=== PATIENT | female | born 1955 | race Caucasian/White ===

== ENCOUNTER 2018-07-08 11:32 | Outpatient (CLI) | payer BC ==
[2018-07-08 17:35] LABS: BASOPHILS # (AUTO) 0.1 10^3/uL (0.0-0.1); BASOPHILS % (AUTO) 0.5 %; EOSINOPHILS # (AUTO) 0.2 10^3/uL (0.0-0.7); EOSINOPHILS % (AUTO) 1.5 %; HGB - HEMOGLOBIN 12.5 g/dL (12.0-16.0); LYMPHOCYTES % (AUTO) 19.3 %; MEAN CORPUSCULAR HEMOGLOBIN 28.9 pg (27.0-31.0); MEAN CORPUSCULAR HGB CONC 32.7 g/dL (32.0-36.0); MEAN CORPUSCULAR VOLUME 88.6 fL (81.0-99.0); MEAN PLATELET VOLUME 9.1 fL (7.9-10.8); MONOCYTES # (AUTO) 0.8 10^3/uL (0.0-1.0); MONOCYTES % (AUTO) 7.8 %; NEUTROPHILS # (AUTO) 7.4 10^3/uL (1.5-6.6); NEUTROPHILS % (AUTO) 70.9 %; PLT - PLATELET COUNT 223 10^3/uL (130-450); RED BLOOD COUNT 4.33 10^6/uL (4.20-5.40); WHITE BLOOD COUNT 10.4 x10^3/uL (4.8-10.8)
[2018-07-08 17:44] LABS: HB2 TOTAL 13.7 g/dL; HEMOGLOBIN A1C 0.48 g/dL; HEMOGLOBIN A1C % 5.4 % (4.6-6.2)
[2018-07-08 18:51] LABS: ALBUMIN 4.5 g/dL (3.2-5.5); ALBUMIN/GLOBULIN RATIO 1.4 (1.0-2.2); ALKALINE PHOSPHATASE 62 IU/L (42-121); ALT ALANINE AMINOTRANSFERASE 12 IU/L (10-60); AST ASPARTATE AMINOTRANSFERASE 15 IU/L (10-42); BILIRUBIN,TOTAL 0.7 mg/dL (0.2-1.0); BUN - BLOOD UREA NITROGEN 20 mg/dL (6-20); CALCIUM 9.6 mg/dL (8.5-10.3); CARBON DIOXIDE - CO2 27 mmol/L (21-32); CHLORIDE 99 mmol/L (101-111); CHOL/HDL RATIO 5.3 (<4.4); CHOLESTEROL 330 mg/dL; CREATININE 0.9 mg/dL (0.4-1.0); GFR - MDRD 64 (>89); GLUCOSE 86 mg/dL (70-100); HDL CHOLESTEROL 62 mg/dL; LDL CHOLESTEROL,CALCULATED 241 mg/dL; LDL/HDL RATIO 3.9 (<4.4); SODIUM 136 mmol/L (135-145); TOTAL PROTEIN 7.8 g/dL (6.7-8.2); VLDL CHOLESTEROL 27 mg/dL
== END 2018-07-08 11:33 | disposition home or self-care (01) ==
LOC: LAB.F 11:32
PROVIDERS: ATTEND Nurse Practitioner Family
DX: Z13.228 Encounter for screening for other metabolic disorders (principal)
CPT/HCPCS: 36415; 80053; 80061; 83036; 83721; 84443; 85025

== ENCOUNTER 2018-07-10 12:00 | Outpatient (CLI) | payer BC | END 2018-07-10 12:01 | disposition home or self-care (01) | LOC: LAB.R 12:00 | PROVIDERS: ATTEND Nurse Practitioner Family | DX: Z12.11 Encounter for screening for malignant neoplasm of colon (principal) | CPT/HCPCS: 82270 ==

== ENCOUNTER 2018-08-18 14:05 | Outpatient (CLI) | payer BC ==
--- NOTE | 2018-08-19 08:33 | Mammography Report ---
Reason: SCREENING MAMMOGRAM FOR BREAST CANCER Procedure Date: 08/18/2018 Accession Number: [id number] / [id number] Procedure: [place] - Screening Mammo w/Wood CPT Code: FULL RESULT: EXAM: Screening Mammo w/Wood DATE: 08/18/2018 2:50 PM CLINICAL HISTORY: Screening examination. No reported risk factors. TECHNIQUE: (B) - Bilateral CC, laterally exaggerated CC, MLO views were obtained. COMPARISON: New baseline mammogram. PARENCHYMAL PATTERN: (D) - The breast(s) demonstrate(s) heterogeneously dense fibroglandular parenchyma. FINDINGS: There are no suspicious masses, calcifications, or areas of distortion. IMPRESSION: Negative examination. BI-RADS category 1. RECOMMENDATION: (ANNUAL) - Recommend routine annual screening mammography. BI-RADS CATEGORY: (1) - Negative. STANDARD QUALIFYING STATEMENTS: 1. This examination was not reviewed with the aid of Computer-Aided Detection (CAD). 2. A negative or benign imaging report should not preclude biopsy if clinically suspicious findings are present. 3. Dense breasts may obscure an underlying neoplasm. 4. This examination was reviewed with the aid of 3D breast imaging (tomosynthesis).
== END 2018-08-18 14:06 | disposition home or self-care (01) ==
LOC: DI 14:05
PROVIDERS: ATTEND Nurse Practitioner Family
DX: Z12.31 Encounter for screening mammogram for malignant neoplasm of breast (principal)
CPT/HCPCS: 77063; 77067

== ENCOUNTER 2018-09-07 08:00 | Outpatient (CLI) | payer BC ==
[2018-09-07 17:31] LABS: ALBUMIN 3.9 g/dL (3.2-5.5); ALKALINE PHOSPHATASE 77 IU/L (42-121); ALT ALANINE AMINOTRANSFERASE 15 IU/L (10-60); AST ASPARTATE AMINOTRANSFERASE 18 IU/L (10-42); BILIRUBIN,DIRECT 0.1 mg/dL (0.1-0.5); BILIRUBIN,TOTAL 0.5 mg/dL (0.2-1.0); CHOL/HDL RATIO 2.7 (<4.4); CHOLESTEROL 134 mg/dL; HDL CHOLESTEROL 50 mg/dL; LDL CHOLESTEROL,CALCULATED 70 mg/dL; LDL/HDL RATIO 1.4 (<4.4); TOTAL PROTEIN 7.6 g/dL (6.7-8.2); VLDL CHOLESTEROL 14 mg/dL
== END 2018-09-07 23:59 | disposition home or self-care (01) ==
LOC: LAB.F 08:00
PROVIDERS: ATTEND Nurse Practitioner Family
DX: E78.5 Hyperlipidemia, unspecified (principal)
CPT/HCPCS: 36415; 80061; 80076; 83721

== ENCOUNTER 2019-12-05 10:07 | Outpatient (CLI) | payer BC ==
[2019-12-05 15:08] LABS: BASOPHILS % (AUTO) 0.6 %; EOSINOPHILS # (AUTO) 0.1 10^3/uL (0.0-0.7); HGB - HEMOGLOBIN 12.6 g/dL (12.0-16.0); LYMPHOCYTES # (AUTO) 1.8 10^3/uL (1.5-3.5); LYMPHOCYTES % (AUTO) 28.2 %; MEAN CORPUSCULAR HEMOGLOBIN 29.4 pg (27.0-31.0); MEAN CORPUSCULAR HGB CONC 31.8 g/dL (32.0-36.0); MEAN CORPUSCULAR VOLUME 92.3 fL (81.0-99.0); MEAN PLATELET VOLUME 11.2 fL (7.9-10.8); MONOCYTES # (AUTO) 0.6 10^3/uL (0.0-1.0); MONOCYTES % (AUTO) 9.7 %; NEUTROPHILS # (AUTO) 3.8 10^3/uL (1.5-6.6); NEUTROPHILS % (AUTO) 59.2 %; PLT - PLATELET COUNT 204 10^3/uL (130-450); RED BLOOD COUNT 4.29 10^6/uL (4.20-5.40); RED CELL DISTRIBUTION WIDTH 12.8 % (12.0-15.0); WHITE BLOOD COUNT 6.4 x10^3/uL (4.8-10.8)
[2019-12-05 15:35] LABS: ALBUMIN 4.1 g/dL (3.2-5.5); ALBUMIN/GLOBULIN RATIO 1.4 (1.0-2.2); ALKALINE PHOSPHATASE 61 IU/L (42-121); ALT ALANINE AMINOTRANSFERASE 26 IU/L (10-60); AST ASPARTATE AMINOTRANSFERASE 23 IU/L (10-42); BILIRUBIN,TOTAL 0.5 mg/dL (0.2-1.0); BUN - BLOOD UREA NITROGEN 19 mg/dL (6-20); CARBON DIOXIDE - CO2 28 mmol/L (21-32); CHLORIDE 105 mmol/L (101-111); CHOLESTEROL 145 mg/dL; CREATININE 0.8 mg/dL (0.4-1.0); GLUCOSE 86 mg/dL (70-100); HDL CHOLESTEROL 48 mg/dL; LDL CHOLESTEROL,CALCULATED 81 mg/dL; LDL/HDL RATIO 1.7 (<4.4); SODIUM 137 mmol/L (135-145); TOTAL PROTEIN 7.1 g/dL (6.7-8.2); VLDL CHOLESTEROL 16 mg/dL
== END 2019-12-05 10:08 | disposition home or self-care (01) ==
LOC: LAB.S 10:07
PROVIDERS: ATTEND Physician Assistant Medical
DX: Z51.81 Encounter for therapeutic drug level monitoring (principal); E78.5 Hyperlipidemia, unspecified; Z79.899 Other long term (current) drug therapy
CPT/HCPCS: 36415; 80053; 80061; 83721; 85025

== ENCOUNTER 2020-11-07 11:28 | Outpatient (CLI) | payer BC ==
[2020-11-07 15:17] LABS: ALBUMIN 4.7 g/dL (3.2-5.5); ALBUMIN/GLOBULIN RATIO 1.4 (1.0-2.2); ALKALINE PHOSPHATASE 63 IU/L (42-121); ALT ALANINE AMINOTRANSFERASE 20 IU/L (10-60); AST ASPARTATE AMINOTRANSFERASE 24 IU/L (10-42); BILIRUBIN,TOTAL 0.6 mg/dL (0.2-1.0); BUN - BLOOD UREA NITROGEN 14 mg/dL (6-20); CALCIUM 9.4 mg/dL (8.5-10.3); CARBON DIOXIDE - CO2 29 mmol/L (21-32); CHLORIDE 101 mmol/L (101-111); CHOL/HDL RATIO 3.1 (<4.4); CHOLESTEROL 171 mg/dL; CREATININE 0.8 mg/dL (0.4-1.0); GFR - MDRD 72 (>89); GLUCOSE 96 mg/dL (70-100); HDL CHOLESTEROL 56 mg/dL; LDL CHOLESTEROL,CALCULATED 98 mg/dL; LDL/HDL RATIO 1.8 (<4.4); POTASSIUM 4.2 mmol/L (3.5-5.0); SODIUM 138 mmol/L (135-145); TRIGLYCERIDES 86 mg/dL; VLDL CHOLESTEROL 17 mg/dL
== END 2020-11-07 11:29 | disposition home or self-care (01) ==
LOC: LAB.S 11:28
PROVIDERS: ATTEND Nurse Practitioner Family
DX: E78.00 Pure hypercholesterolemia, unspecified (principal)
CPT/HCPCS: 36415; 80053; 80061; 83721

== ENCOUNTER 2021-09-06 08:00 | Outpatient (CLI) | payer BC | END 2021-09-06 08:01 | disposition home or self-care (01) | LOC: LAB.S 08:00 | PROVIDERS: ATTEND Physician Assistant Medical | DX: U07.1 COVID-19 (principal) ==

== ENCOUNTER 2022-05-09 11:00 | Outpatient (CLI) | payer MEDICARE ==
--- NOTE | 2022-05-09 16:05 | XRAY Report ---
PROCEDURE: Chest 2 View X-Ray INDICATIONS: POSTMENOPAUSAL, ABN VAG BLEED, EX SMOKER TECHNIQUE: 2 views of the chest were acquired. COMPARISON: None FINDINGS: Surgical changes and devices: None. Lungs and pleura: No pleural effusions or pneumothorax. Lungs are clear. Mediastinum: Mediastinal contours are normal. Heart size is normal. Bones and chest wall: No suspicious bony abnormalities. Soft tissues appear unremarkable. IMPRESSION: No acute radiographic abnormality. Reviewed by: Danie Choi MD on 05/09/2022 4:04 PM [facility] Approved by: Danie Choi MD on 05/09/2022 4:04 PM [facility] Station ID: [id number]
--- NOTE | 2022-05-09 16:23 | Ultrasound Report ---
PROCEDURE: Pelvic w/Transvaginal INDICATIONS: POSTMENOPAUSAL, ABN VAG BLEED, EX SMOKER TECHNIQUE: Real-time scanning was performed of the pelvic organs, with image documentation. Additional endovagi nal scanning was necessary due to incomplete visualization of the adnexal and endometrial structures by transabdominal scanning. COMPARISON: 06/02/2013. FINDINGS: Uterus: Uterus is anteverted and normal in size at 5.6 x 2.7 x 3.8 cm. The myometrium is heterogene ous. 1 x 0.8 x 0.9 cm intramural fibroid in posterior myometrium near midline is seen not significant ly changed from previous study. The endometrium measures 5.25 mm in combined thickness. Heterogeneou s endometrial echotexture is noted. Ovaries: Bilateral ovaries are not visualized. No adnexal masses are seen. Other: No pathologic free abdominal or pelvic fluid. IMPRESSION: 1. Thickened endometrium with heterogeneous echotexture, which may represent endometrial hyperplasia suggest clinical correlation. 2. Heterogeneous myometrial echotexture with calcified uterine fibroid as above. 3. No adnexal mass is seen. Reviewed by: Taj Corrigan MD on 05/09/2022 4:22 PM PST Approved by: Taj Corrigan MD on 05/09/2022 4:22 PM PST Station ID: [id number]
--- NOTE | 2022-05-09 16:51 | CT Report ---
PROCEDURE: Low Dose Lung Cancer Screen INDICATIONS: POSTMENOPAUSAL, ABN VAG BLEED, EX SMOKER TECHNIQUE: Noncontrast low-dose axial images were acquired from the pulmonary apices to the posterior costophren ic angles. Multiplanar MIP reformats were then reconstructed. For radiation dose reduction, the follo wing was used: automated exposure control, adjustment of mA and/or kV according to patient size. COMPARISON: None. FINDINGS: Image quality: Excellent. Lungs and pleura: 4 x 2 mm nodular density is seen in lateral aspect of right apex series 4 image 37. No other pulmonary nodule or mass is seen. Mild to moderate centrilobular emphysema is seen. Scatter ed atelectasis in periphery of bilateral lung ybarra are noted most prominent in the anterior medial aspect of bilateral lung bases. No acute airspace opacities. No pleural effusion or pneumothorax. Merrill tral and peripheral airway is patent. Mediastinum: Heart size is normal. No pericardial effusion. No mediastinal adenopathy by size crit eria. Thoracic aorta and central pulmonary arteries are normal in size. Mild atherosclerotic calcif ications in coronary vessels and thoracic aorta are seen. Esophagus is normal in caliber. No hiatal hernia. Bones and chest wall: No suspicious bony lesions. Degenerative disc disease throughout thoracic spin e is seen with chronic-appearing superior endplate compression deformity involving T11 vertebral body . No axillary or supraclavicular adenopathy by size criteria. The thyroid is normal in size and ther e are no incidental findings. Abdomen: Visualized upper abdomen solid organs and bowel loops appear normal in the absence of contr ast. IMPRESSION: 1. Single 4 x 2 mm solid nodule in right apex as above. Scattered atelectasis in bilateral lung field s. Mild to moderate centrilobular emphysema. Lung RADS category: 2, benign findings. Annual low dose screening CT chest follow-up is recommended. 2. Mild atherosclerotic disease. CLINICAL RECOMMENDATION STATEMENTS: In patients <35 years with an ITN detected on CT, MRI, or extrathyroidal ultrasound, the Committee re commends further evaluation with dedicated thyroid ultrasound if the nodule is "e1 cm and has no susp icious imaging features, and if the patient has normal life expectancy. In patients "e35 years with an ITN detected on CT, MRI, or extrathyroidal ultrasound, the Committee r ecommends further evaluation with dedicated thyroid ultrasound if the nodule is "e1.5 cm and has no s uspicious imaging features, and if the patient has normal life expectancy. (ACR, 2014) Reviewed by: Taj Corrigan MD on 05/09/2022 4:50 PM PST Approved by: Taj Corrigan MD on 05/09/2022 4:50 PM PST Station ID: [id number]
== END 2022-05-09 11:01 | disposition home or self-care (01) ==
LOC: DI 11:00
PROVIDERS: ATTEND Nurse Practitioner Family
DX: Z12.2 Encounter for screening for malignant neoplasm of respiratory organs (principal); R91.1 Solitary pulmonary nodule; J98.11 Atelectasis; J43.9 Emphysema, unspecified; D25.1 Intramural leiomyoma of uterus; R93.89 Abnormal findings on diagnostic imaging of other specified body structures; Z87.891 Personal history of nicotine dependence

== ENCOUNTER 2022-05-09 11:01 | Outpatient (CLI) | payer MEDICARE ==
--- NOTE | 2022-05-13 12:59 | Mammography Report ---
BILATERAL DIGITAL SCREENING MAMMOGRAM 3D/2D: 05/09/2022 CLINICAL: Routine screening. Comparison is made to exam dated: 08/18/2018 mammogram - [facility]. Both breasts are heterogeneously dense, which may obscure small masses (category c / 51-75% glandular tissue). No significant masses, calcifications, or other findings are seen in either breast. There has been no significant interval change. IMPRESSION: NEGATIVE There is no mammographic evidence of malignancy. A 1 year screening mammogram is recommended. Based on the Tyrer Cuzick model (a risk assessment model) the patients lifetime risk is 7.1% and her 10 year risk is 3.4%. According to the ACR, ACS, and NCCN guidelines, an annual breast MRI exam christal g with mammogram is recommended if the patients lifetime risk is 20% or greater. This exam was interpreted at Station ID: [id number]. NOTE: For mammograms, a report in lay terms will be sent to the patient. Approximately 15% of breast malignancies will not be visualized mammographically. In the management of a palpable breast mass, a negative mammogram must not discourage biopsy of a clinically suspicious lesion. Electronically Signed By: Vamshi Page M.D. [email or web address]:05/09/2022 16:22:27 ACR BI-RADS Category 1: Negative 3341F PARENCHYMAL PATTERN: (D) - The breast(s) demonstrate(s) heterogeneously dense fibroglandular parjosey ma. BI-RADS CATEGORY: (1) - 1 RECOMMENDATION: (ANNUAL) - Recommend routine annual screening mammography. [id number] 1 year screening LATERALITY: (B)
== END 2022-05-09 11:02 | disposition home or self-care (01) ==
LOC: DI 11:01
PROVIDERS: ATTEND Nurse Practitioner Family
DX: Z12.31 Encounter for screening mammogram for malignant neoplasm of breast (principal)

== ENCOUNTER 2022-06-24 07:34 | Day surgery (SDC) | payer MEDICARE ==
[2022-06-24] MEDS ORDERED: LACTATED RINGERS 1,000 ML IV ONE (07:57)
[2022-06-24] MEDS ORDERED: fentaNYL 100 MCG/2 ML VIAL ONE ×2 (08:11→09:28)
[2022-06-24] MEDS ORDERED: MIDAZOLAM 2 MG/2 ML VIAL ONE (08:11)
[2022-06-24] MEDS ORDERED: PROPOFOL 200 MG/20 ML VIAL IVP ONE (08:11)
[2022-06-24] MEDS ORDERED: LIDOCAINE MPF 2%-EPI 1:200000 20 ML VIAL ONE (08:14)
[2022-06-24] MEDS ORDERED: BUPIVACAINE 0.5% PF 30 ML VIAL ONE (08:14)
[2022-06-24] MEDS ORDERED: NALOXONE 0.4 MG/ML VIAL IVP PRN (08:24)
[2022-06-24] MEDS ORDERED: ATROPINE ABBOJECT 1 MG/10 ML SYRINGE IVP PRN (08:24)
[2022-06-24] MEDS ORDERED: ONDANSETRON 4 MG/2 ML VIAL IVP PRN (08:24)
[2022-06-24] MEDS ORDERED: HYDROmorphone 0.5 MG/0.5 ML SYRINGE IVP PRN (08:24)
[2022-06-24] MEDS ORDERED: MORPHINE 2 MG/ML CARPUJECT IVP PRN (08:24)
--- NOTE | 2022-06-24 08:24 | ANESTHESIA ---
Pre-Anesthesia VS, & Labs - Diagnosis post menopausal bleeding - Procedure myosure hysteroscopy Vital Signs: Temp Pulse Resp BP Pulse Ox O2 Flow Rate 36.6 C 74 16 115/73 96 06/24/22 07:57 06/24/22 07:57 06/24/22 07:57 06/24/22 07:57 06/24/22 07:57 Height: 5 ft 2 in Weight (kg): 67.6 kg Body Mass Index: 27.2 BMI Classification: Overweight - NPO >8 hours - Is Patient ?: No Home Medications and Allergies Home Medications: Ambulatory Orders Albuterol Sulf [Ventolin Hfa Inhaler] 1 - 2 puffs INH Q4HR PRN 06/10/22 Atorvastatin Calcium 40 mg PO DAILY 06/10/22 Multivitamin 1 each PO DAILY 06/10/22 Albuterol Sulf [Ventolin Hfa Inhaler] 1 - 2 puffs INH Q4HR PRN 06/10/22 Atorvastatin Calcium 40 mg PO DAILY 06/10/22 Multivitamin 1 each PO DAILY 06/10/22 Allergies/Adverse Reactions: Allergies Allergy/AdvReac Type Severity Reaction Status Date / Time Sulfa (Sulfonamide Allergy Hives Verified 06/24/22 06:26 Antibiotics) Anes History & Medical History - Anesthetic History Anesthesia Complications: reports: No previous complications - Medical History Cardiovascular: reports: High cholesterol Pulmonary: reports: Emphysema Gastrointestinal: reports: Other (ibs) Urinary: reports: None Neuro: reports: None Musculoskeletal: reports: Osteoarthritis Endocrine/Autoimmune: reports: None Blood Disorders: reports: None Skin: reports: None Smoking Status: Former smoker Psychosocial: reports: No issues indicated History of Cancer?: No - Surgical History Gynecologic: reports: Oophrectomy Exam General: Alert, Oriented x3, Cooperative, No acute distress Mouth Openin Fingerbreadth Mallampati classification: II Thyromental Distance: 4-6 cm Mental/Cognitive Status: Alert/Oriented X3, Normal for patient Plan Anesthesia Type: General Consent for Procedure(s) Verified and Reviewed: Yes Code Status: Attempt Resuscitation ASA classification: 2-Mild systemic disease Is this case an emergency?: No
[2022-06-24] MEDS ORDERED: DEXAMETHASONE 4 MG/ML VIAL ONE (08:57)
[2022-06-24] MEDS ORDERED: ONDANSETRON 4 MG/2 ML VIAL ONE (08:57)
[2022-06-24] MEDS ORDERED: LIDOCAINE 2%-EPI 1:100000 20 ML MDV SUBQ ONE ×2 (09:00→09:04)
[2022-06-24] MEDS ORDERED: BUPIVACAINE 0.5% PF 10 ML VIAL SUBQ ONE ×2 (09:00→09:04)
[2022-06-24] MEDS ORDERED: LACTATED RINGERS 1,000 ML IV SCH (09:00)
[2022-06-24] MEDS ORDERED: HYDROcod/ACETAM 5/325 MG TABLET PO PRN (09:15)
[2022-06-24] MEDS ORDERED: LACTATED RINGERS 150 ML IV ONE (09:17)
--- NOTE | 2022-06-24 09:20 | OPERATIVE REPORT ---
Operative Report - General Procedure Date: 06/24/22 Planned Procedure: Hysteroscopy with myosure dilation and curettage Pre-Op Diagnosis: Postmenopausal bleeding Procedure Performed: Hysteroscopy with MyoSure D&C Post Op Diagnosis: Postmenopausal bleeding, endometrial polyp - Procedure Note Primary Surgeon: Wilfredo Jacobo MD Anesthesia Provider: Gaby Clayton CRNA Anesthesia Technique: General LMA Pathology: Endometrial curettings IV Fluids (mL): 900 Estimated Blood Loss (mL): 5 Urine Output (mL): 50 Complications: None - Other Other Information/Narrative: Patient was taken to the procedure room and placed in dorsal lithotomy position. Hibiclens was used to clean the operative area. [place] speculum was palced in the vagina and the cervix was visualized. The anterior lip the cervix was grasped with a single-tooth tenaculum. 3 mL of local anesthesia was used for paracervical block. The cervix was non-stenotic and allowed the easy passage of dilators. Hysteroscope was then used to hydrodilate using normal saline distention media. Hysteroscope was advanced without difficulty using hydrodistention. Cervical canal was noted to have no issues. Upon entry into the internal cervical os there was noted to be a prominent polyp in the posterior portion of the fundus within the uterus. Bilateral tubal ostia were noted. The MyoSure device was then used to remove the polyp and take a sampling of the endometrium Hysteroscope was then removed. . A sharp curette was then performed and contents were collected on a Telfa. Tenaculum was then removed from the cervix noted to be hemostatic. All instruments removed from the vagina Fluid deficit 90 mL.
[2022-06-24] MEDS: fentaNYL 100 MCG/2 ML VIAL IVP PRN ×2 (09:30→09:37)
[2022-06-24] MEDS ORDERED: HYDROcod/ACETAM 5/325 MG TABLET ONE (10:04)
[2022-06-24 10:06] VITALS: BP 117/65
[2022-06-24] MEDS ORDERED: LACTATED RINGERS 800 ML IV ONE (10:10)
--- NOTE | 2022-06-24 18:54 | ANESTHESIA POST OP EVALUATION ---
Anesthesia Post Eval - Post Anesthesia Eval Vitals: Last Vital Signs Temp 36.0 C L 06/24/22 10:04 Pulse 67 06/24/22 10:04 Resp 13 06/24/22 10:04 BP 117/65 06/24/22 10:04 Pulse Ox 93 06/24/22 10:04 O2 Flow Rate CV Function Including HR & BP: Stable Pain Control: Satisfactory Nausea & Vomiting: Negative Mental Status: Baseline Respiratory Status: Airway Patent Hydration Status: Satisfactory Anesthesia Complications: None
== END 2022-06-24 07:35 | disposition home or self-care (01) ==
LOC: SDS 07:34
PROVIDERS: ATTEND Obstetrics & Gynecology
PROC: 0UDB8ZZ Extraction of Endometrium, Via Natural or Artificial Opening Endoscopic (ICD-10-PCS; principal; 2022-06-24 08:30)
DX: N95.0 Postmenopausal bleeding (principal); R93.89 Abnormal findings on diagnostic imaging of other specified body structures; N84.0 Polyp of corpus uteri; J43.9 Emphysema, unspecified; Z87.891 Personal history of nicotine dependence
CPT/HCPCS: 58558; A9270; J7120

== ENCOUNTER 2022-10-15 08:00 | Outpatient (CLI) | payer MEDICARE ==
--- NOTE | 2022-10-15 17:06 | XRAY Report ---
PROCEDURE: Knee 4 View RT INDICATIONS: ACUTE RIGHT KNEE PAIN TECHNIQUE: 4 views of the right knee(s) were acquired. COMPARISON: None. FINDINGS: Bones: No fractures or dislocations. No suspicious bony lesions. Soft tissues: No significant knee joint effusion. No suspicious soft tissue calcifications or masses . IMPRESSION: No acute osseous abnormality. Reviewed by: Be Luevano MD on 10/15/2022 5:05 PM PDT Approved by: Be Luevano MD on 10/15/2022 5:05 PM PDT Station ID: [id number]
== END 2022-10-15 23:59 | disposition home or self-care (01) ==
LOC: DI.S 08:00
PROVIDERS: ATTEND Physician Assistant
DX: M25.561 Pain in right knee (principal)